=== PATIENT | female | born 1970 | race Caucasian/White ===

== ENCOUNTER 2017-03-31 19:38 | Emergency (ER) | payer BC ==
[2017-03-31 20:28] LABS: Hematocrit 41.7 % (37.0-47.0); Hemoglobin 15.1 gm/dL (12.5-16.0); Mean Cell Volume 87.6 fl (78-100); Mean Corpuscular Hemoglobin 31.7 pg (27-31); Mean Corpuscular Hgb Conc 36.2 g/dl (32-36); Mean Platelet Volume 8.8 fl (6.0-9.5); Neutrophil # 17.6 K/mm3 (1.3-6.0); Neutrophil % 88.6 % (42-75.0); Platelet Count 220 K/mm3 (150-450); Red Blood Count 4.76 M/mm3 (4.2-5.4); Red Cell Distribution Width 12.1 % (11.5-14.0); White Blood Count 19.9 K/mm3 (4.0-10.5)
[2017-03-31 20:38] LABS: Prothrombin Time (Patient) 10.9 Seconds (9.4-11.4)
[2017-03-31 20:41] LABS: INR 1.05 INR (0.90-1.10); Partial Thrombolplastin Time 29.2 Seconds (24-32)
[2017-03-31] MEDS ORDERED: MAG HYDROX/ALUMINUM HYD/SIMETH 30 ML UDC PO ONE (20:44)
[2017-03-31] MEDS ORDERED: SUCRALFATE 1 G/10 ML UDC PO ONE (20:44)
[2017-03-31] MEDS ORDERED: LIDOCAINE HCL 20 ML UDC MM ONE (20:44)
[2017-03-31 20:45] LABS: ALT 39 U/L (19-67); AST 21 U/L (0-48); Albumin * 3.6 gm/dl (3.4-5.0); Alkaline Phosphatase * 111 U/L (50-170); Anion Gap 14.2 mmol/L (6.8-13.8); BUN/Creatinine Ratio 14.3 (9.0-21.6); Bilirubin, Total 1.2 mg/dL (0.0-1.1); Blood Urea Nitrogen 16 mg/dL (3-23); Ca. Corrected For Albumin 9.5 mg/dL (8.4-10.2); Calcium * 9.5 mg/dL (7.9-10.9); Carbon Dioxide 25.7 mmol/L (24-32.6); Chloride 99 mmol/L (97-106); Glucose * 191 mg/dL (70-110); Potassium 3.9 mmol/L (3.4-4.6); Sodium 135 mmol/L (132-142); Total Protein 7.4 gm/dL (6.2-8.2); Troponin I Less than 0.017 ng/ml (0.00-0.10)
[2017-03-31] MEDS ORDERED: LEVOFLOXACIN/D5W 750 MG/150 ML BAG IV ONE (21:13)
[2017-03-31 21:17] LABS: CRP 4.4 mg/dL (0.0-0.9)
--- NOTE | 2017-03-31 22:48 | ERNOTE ---
Chest Pain/Cardiac HPI Date of Service: 03/31/17 Chief Complaint: Chest Pain Time Seen by Provider: 03/31/17 20:31 Source: patient Immunizations: IMMUNIZATION HX Immunizations Up to Date Yes Allergies/Adverse Reactions: Allergies No Known Allergies Allergy (Verified 04/02/15 22:16) Home Medications: HOME MEDICATIONS Cephalexin Monohydrate [Keflex] 1,000 mg PO BID #40 cap 04/03/15 [Last Taken Unknown] Phenazopyridine HCl [Pyridium] 200 mg PO TID #6 tablet 04/03/15 [Last Taken Unknown] Levofloxacin [Levaquin] 500 mg PO DAILY #7 tab 03/31/17 [Last Taken Unknown] Narrative: 47-year-old patient presents to the emergency room after an episode of emesis followed by chest pain. Patient states she was at work had an episode of emesis after she vomited she had right-sided chest pain with inspiration or coughing. Patient states she did not throw up food but just bile Date (Duration): 03/31/17 Timing: intermittent Severity/Quality: mild Location: other - right chest along breast boarder Chest Pain Radiation: no radiation Activities at Onset: none Modifying Factors - Improves: Present: nothing Modifying Factors - Worsens: Present: coughing Nitro Today/Relief: no nitro taken today Aspirin Treatment Today: provided at home Associated Symptoms: Present: cough. Absent: headache, dizziness, shortness of breath Prior Chest Pain/Cardiac Workup: Reports: prior chest pain Review of Systems - Review of Systems Constitutional: Present: no symptoms reported EYE: Present: no symptoms reported ENT: Present: no symptoms reported Respiratory: Present: See HPI Cardiology: Present: See HPI Gastrointestinal/Abdominal: Present: See HPI Genitourinary: Present: no symptoms reported Musculoskeletal: Present: no symptoms reported Skin: Present: no symptoms reported Neurological: Present: no symptoms reported Endocrine: Present: no symptoms reported Hematologic/Lymphatic: Present: no symptoms reported Psych: Present: no symptoms reported All Other Systems: All systems neg except as marked - Social History Living Situations: home - Immunizations Immunizations Up to Date: Yes Physical Exam - Physical Exam Narrative: patient is tender on the right boarder of her sternum in between her breast and sternum. rest of her exam was WNL General Appearance: Present: wd/wn, alert, no apparent distress Eye Exam: Normal inspection: bilateral Ears, Nose, Throat: Present: normal ENT inspection, normal pharynx Neck: Present: normal inspection, nontender Respiratory: Present: no respiratory distress, normal breath sounds, no accessory muscle use, lungs clear, chest tenderness - pain with deep inspiration and cough Cardiovascular/Chest: Present: regular rate, rhythm, no murmur, normal peripheral pulses Gastrointestinal/Abdominal: Present: normal bowel sounds, soft Extremity Exam: Present: normal inspection, non-tender, normal range of motion, no edema Neurological Exam: Present: alert, oriented, normal mood/affect, no motor/ sensory deficits Skin Exam: Present: normal color, warm/dry Lymphatic Exam: Present: no adenopathy ED Progress - Results and Orders Patient's Lab Results:: I have reviewed the patient's lab results. Results and Orders: elevated wbc - Vital Signs Vital Signs: Vital Signs 03/31/17 03/31/17 03/31/17 19:49 19:52 21:13 Temperature 36.7 C Pulse Rate 114 H 116 H 98 Respiratory 18 19 Rate Blood Pressure 120/70 124/71 O2 Sat by Pulse 98 98 Oximetry - EKG EKG read: Reviewed by me EKG Comments: interp by ER attending - X-Ray X-Ray #1 X-Ray: chest Interpretation: Reviewed by me X-ray Comments: PATIENT RADIOLOGY STUDY REPORT Patient Patient Name:LISA RAHMAN Date: 1970 Sex: F Order Number: [id number] Unique Exam ID: [id number] Exam Requested: CXRPALAT - Chest PA Lateral * Date Scheduled: Study Priority: Requesting Service: Requesting Physician: Andre Chang Reason for Exam: Chest Pain Radiological Report : Exam Date: 03/31/2017 19:54 Ordering Physician: Andre Chang HISTORY: Chest Pain TWO VIEW CHEST Comparison: None Technique: Upright frontal and lateral views of the chest were obtained. Findings: The cardiac silhouette is within normal limits of size. The mediastinum and hilum are with in normal limits. There is linear density identified within the anterior inferior chest on the lateral study: Kisha believe is located in the right middle lobe. This may reflect infiltrate or atelectasis. The remaining lung navarro are clear. I do not see evidence for an effusion or pulmonary edema. IMPRESSION: 1. LINEAR DENSITY IN THE ANTERIOR-INFERIOR CHEST ON THE LATERAL STUDY, WHICH I BELIEVE IS LOCATED IN THE RIGHT MIDDLE LOBE. THIS MAY REFLECT INFILTRATE OR ATELECTASIS. CORRELATION IS REQUIRED. Electronically signed by Xavier Montelongo M.D.. Approved by: Approval Date: 03-31-2017 Approval Time: 08:39 PM THIS REPORT WAS RECEIVED FROM THE [employer] SYSTEM - Progress/Reassessment Chief Complaint: Chest Pain Progress:: Improved Departure - Departure Clinical Impression: Aspiration pneumonia Qualifiers: Aspiration pneumonia type: due to gastric secretions Laterality: right Lung location: middle lobe of lung Qualified Code(s): J69.0 - Pneumonitis due to inhalation of food and vomit Disposition: Home Follow Up Needed Condition: Stable Instructions: Aspiration Pneumonia Additional Instructions: Continue any previous home medications. Follow-up with primary care provider in the next 2-3 days. Return to emergency rooms if you develop any new symptoms or symptoms return. Referrals: Ness Guo FNP [Primary Care Provider] - Prescriptions: Levofloxacin [Levaquin] 500 mg PO DAILY #7 tab
[2017-03-31 23:07] VITALS: BP 133/80
== END 2017-03-31 22:57 | disposition home or self-care (01) ==
LOC: ER 19:38
DX: J69.0 Pneumonitis due to inhalation of food and vomit (principal)